=== PATIENT | male | born 1945 | race Caucasian/White ===

== ENCOUNTER → 2016-09-14 | Outpatient (CLI) | payer BC ==
[~2016-09-14] MED LIST: ASPCH81X PO; INDA1TAB3 PO
[2016-09-14 09:42] LABS: BASO % 1.1 %; BASO ABS # 0.07 K/uL (0-0.2); COMPLETE YES; EOS % 6.1 %; HEMATOCRIT 40.8 % (42-52); IG% 0.2 %; LYMPH % 42.4 %; MEAN CELL VOLUME 88.3 fL (80-100); MEAN PLATELET VOLUME 10.2 fL (7.4-10.4); MONO % 7.2 %; PLATELET COUNT 260 K/uL (130-400); RED BLOOD COUNT 4.62 M/uL (4.7-6.1); WHITE BLOOD COUNT 6.37 K/uL (4.8-10.8)
[2016-09-14 10:00] LABS: ESTIMATED AVERAGE GLUCOSE 105 mg/dl; HA1C FLAG Normal (Normal)
[2016-09-14 10:04] LABS: BLOOD UREA NITROGEN 23 mg/dl (7-18); BUN/CREATININE RATIO 25.5 (10-20); CALCIUM 8.5 mg/dl (8.5-10.1); CARBON DIOXIDE 29 mmol/L (21-32); CHLORIDE 108 mmol/L (98-107); CREATININE 0.92 mg/dl (0.60-1.40); GLUCOSE 105 mg/dl (70-99); MAGNESIUM 2.4 mg/dl (1.8-2.4); POTASSIUM 3.9 mmol/L (3.5-5.1); SODIUM 142 mmol/L (136-145)
[2016-09-14 10:08] LABS: URINE APPEARANCE CLEAR (CLEAR); URINE BILIRUBIN NEG (NEG); URINE COLOR YELLOW; URINE EPITHELIAL CELL AUTO 20-30 /lpf (0-5); URINE NITRITE NEG (NEG); URINE PH 7.5 (4.5-7.5); URINE SPECIFIC GRAVITY 1.025 (1.000-1.030); UROBILINOGEN NEG (NEG)
[2016-09-14 10:15] LABS: CHOLESTEROL 193 mg/dl (0-200); CHOLESTEROL/HDL RATIO 3.9; HDL CHOLESTEROL 49 mg/dl; LDL CHOLESTEROL CALCULATED 118 mg/dl; MANUAL MICROSCOPIC REQUIRED? NO; REVIEW REQ? NO; TRIGLYCERIDES 132 mg/dl (0-150); VERY LOW DENSITY LIPOPROT CALC 26 mg/dl
--- NOTE | 2016-09-19 06:41 | CODING QUERY MEDICAL NECESSITY ---
SUPPORTING DIAGNOSIS NEEDED Dr. Middleton, A supporting diagnosis is required for the test/procedure performed on this patient in order for us to be reimbursed by the patient's insurance. Please provide a supporting diagnosis for the following test/procedure listed below next to the test name along with your signature. *If there is no additional diagnosis for this patient that would support the following test/procedure please document that below next to the test/procedure. Test(s)/Procedure(s) that require a supporting diagnosis: * [id number] GLYCATED HEMOGLOBIN DIAGNOSIS: DATE OF SERVICE: 09/14/16 Provider Signature: Date: Thank you Neto Mojica [facility] Information Management Once completed, please kindly fax back to [phone] For questions please call [phone]
== END | disposition home or self-care (01) ==
LOC: C.LAB1850 07:18
PROVIDERS: ATTEND Internal Medicine
DX: M54.12 Radiculopathy, cervical region (principal); E74.39 Other disorders of intestinal carbohydrate absorption

== ENCOUNTER → 2017-12-18 | Outpatient (CLI) | payer BC ==
--- NOTE | 2017-12-18 15:31 | DIAGNOSTIC IMAGING REPORT ---
R FOOT MIN 3 VIEWS ROUTINE HISTORY: 72 years-old Male S93.409A Sprained [id number] Pain in joint of right ankle or f acute right foot and ankle pain COMPARISON: None available TECHNIQUE: 3 views of the right foot FINDINGS: Moderate degenerative changes about the first MTP joint. Mostly mild degenerative changes of the interphalangeal joints. Prominent osteophytic spurring with sclerosis involves the medial and lateral hallux sesamoids. Corticated bone fragments adjacent to the lateral first proximal phalangeal base suggest fragmented osteophytes. No acute fracture or dislocation. Mild soft tissue swelling about the ankle. IMPRESSION: 1. Mild soft tissue swelling without fracture. 2. Degenerative changes as above. The above report was generated using voice recognition software. It may contain grammatical, syntax or spelling errors. Electronically signed by: Ellis Edwards M.D. 12/18/2017 3:30 PM Dictated Date/Time: 12/18/2017 3:28 PM
== END | disposition home or self-care (01) ==
LOC: C.RAD1850 15:01
PROVIDERS: ATTEND Internal Medicine
DX: M25.571 Pain in right ankle and joints of right foot (principal); S93.401A Sprain of unspecified ligament of right ankle, initial encounter; X58.XXXA Exposure to other specified factors, initial encounter